=== PATIENT | female | born 1950 | race Caucasian/White ===

== ENCOUNTER 2020-04-21 19:57 | Inpatient (IN) | payer OTHER, MEDICAID, SELFPAY ==
[~2020-04-21] VITALS: Ht 160 cm; Wt 77.1 kg
[~2020-04-21 19:57] MED LIST: ATI.5 PO; BRE5 PO; DIT5 PO; DIVA250E1 PO; DIVA250T PO; MAA30 PO; MAGN400S60 PO; MEMA10TA PO; METO25TA PO; MULT-2410 PO; OLAN2.5T1 PO; SODI1TAB1 PO; SYN.075 PO; [UNRECOGNIZED DRUG - CODE] PO
--- NOTE | 2020-04-21 20:15 | NUR ---
PT VALERIO BLS. TAKEN TO BED 5
[2020-04-21 20:22] VITALS: BP 145/84
--- NOTE | 2020-04-21 20:30 | NUR ---
VISIBLE RED RASH NOTED UNDERNEATH BREAST AREA, ERMD MADE AWARE
--- NOTE | 2020-04-21 20:30 | NUR ---
69 YEAR OLD FEMALE BIBA FROM [facility] LOC. GCS 7 ([id number]). PT AOX0 SHE DOES NOT RESPOND VERBALLY WHEN TALKED TO, ONLY GRUNTS AND SLEEPS. PT PUPILS 2MM. PT REPORTEDLY LAST SEEN NORMAL AT 5PM. PT BREATHING EVEN AND UNLABORED, SKIN WARM AND DRY, SPO2 91%. PT PLACED ON MONITOR, ERMD MADE AWARE OF PT STATUS. PMH - HTN, DM2, DEMENTIA
--- NOTE | 2020-04-21 20:44 | NUR ---
PT O2 SATURATION DROPPED TO 91%, PLACED ON 2L NC. O2 SATURATION 99%, RR 14
[2020-04-21] MEDS ORDERED: NACL 0.9% 1,000 ML IV ONE (20:50)
[2020-04-21] MEDS ORDERED: cefTRIAXone 1,000 MG VIAL ONE (21:00)
--- NOTE | 2020-04-21 21:00 | NUR ---
UNABLE TO OBTAIN EKG AT THIS TIME AFTER ATTEMPTS B/C PT CONFUSED AND MOVES TOO MUCH. ERMD MADE AWARE
[2020-04-21 21:34] LABS: BASOPHILS # (AUTO) 0.1 K/uL (0.00-0.22); BASOPHILS % (AUTO) 0.7 % (0.0-2.0); EOSINOPHILS # (AUTO) 0.3 K/uL (0-0.4); EOSINOPHILS % (AUTO) 3.4 % (0.0-4.0); HEMOGLOBIN 10.8 g/dL (12.0-16.0); LYMPHOCYTES # (AUTO) 3.3 K/uL (2.5-16.5); MEAN CORPUSCULAR HEMOGLOBIN 29 pg (27-31); MEAN CORPUSCULAR HGB CONC 33 g/dL (33-37); MEAN CORPUSCULAR VOLUME 89.8 fL (80-94); MONOCYTES # (AUTO) 0.5 K/uL (0.8-1.0); MONOCYTES % (AUTO) 5.4 % (1.7-9.3); NEUTROPHILS # (AUTO) 5.5 K/uL (1.8-7.7); NEUTROPHILS % (AUTO) 56.5 % (42.2-75.2); PLATELET COUNT (AUTO) 240 K/uL (140-450); RED BLOOD CELL COUNT(AUTO) 3.68 MIL/uL (4.20-5.40); RED CELL DISTRIBUTION WIDTH 13.9 % (11.6-13.7); WHITE BLOOD COUNT (AUTO) 9.8 K/uL (4.8-10.8)
--- NOTE | 2020-04-21 21:46 | NUR ---
CALLED AGRICULTURAL LENDER NEED MORE STRAIGHT CATH
[2020-04-21 21:48] LABS: ALBUMIN 3.2 g/dL (3.4-5.0); ANION GAP 15.5 (8-16); CARBON DIOXIDE 25.3 mmol/L (21-32); CREATININE 1.6 mg/dL (0.6-1.3); POTASSIUM 4.8 mmol/L (3.5-5.1); TOTAL BILIRUBIN 0.2 mg/dL (0.0-1.0)
[2020-04-21 21:52] LABS: PROTHROMBIN TIME 9.9 secs (10.8-13.4)
[2020-04-21] MEDS ORDERED: DIVA250E1 PO (22:07)
[2020-04-21] MEDS ORDERED: BRE5 PO (22:07)
[2020-04-21] MEDS ORDERED: METO25TE2 PO (22:07)
[2020-04-21] MEDS ORDERED: SYN.075 PO (22:07)
[2020-04-21] MEDS ORDERED: MEMA10TA PO (22:07)
[2020-04-21] MEDS ORDERED: METF850T PO (22:07)
[2020-04-21] MEDS ORDERED: OLAN2.5T1 PO (22:07)
--- NOTE | 2020-04-21 22:10 | NUR ---
CALLED LASERIST DAJA THAT STILL NEED STRAIGHT CATH
--- NOTE | 2020-04-21 22:40 | NUR ---
STRAIGHT CATH PERFORMED TO OBTAIN URINE, SENT TO LAB. PROCEDURE WITHOUT COMPLICATION
[2020-04-21] MEDS ORDERED: HYDROcodone/APAP 5/325 MG 1 TAB TAB PO PRN (23:05)
[2020-04-21] MEDS ORDERED: ONDANSETRON 4 MG/2 ML VIAL IM/IVP PRN (23:05)
[2020-04-21] MEDS ORDERED: MORPHINE SULFATE 2 MG/ML SYR IVP PRN (23:05)
[2020-04-21] MEDS ORDERED: ACETAMINOPHEN 325 MG TAB PO PRN (23:05)
[2020-04-21] MEDS ORDERED: DOCUSATE SODIUM 100 MG GELCAP PO PRN (23:05)
--- NOTE | 2020-04-21 23:05 | NUR ---
PT RESTING WITH EYES CLOSED, BREATHING EVEN AND UNLABORED
--- NOTE | 2020-04-21 23:06 | NUR ---
EMT AT BEDSIDE TO PERFORM EKG
--- NOTE | 2020-04-21 23:30 | NUR ---
Brayden grijalva in [facility] - 04/22/20 at 0104 by MEDJJ ELIZID SWAB SENT TO LAB
[2020-04-21] MEDS ORDERED: MAGNESIUM HYDROXIDE 2400 MG/30 ML UDC PO PRN (23:40)
[2020-04-21] MEDS ORDERED: LORazepam 0.5 MG TAB PO PRN (23:40)
--- NOTE | 2020-04-21 23:41 | NUR ---
COVID SWAB SENT TO LAB
[2020-04-21 23:42] LABS: APPEARANCE,URINE CLOUDY (CLEAR); COLOR,URINE YELLOW (YELLOW); PH,URINE 7.5 (5.0-9.0)
[2020-04-21 23:43] LABS: BILIRUBIN,URINE NEGATIVE (NEGATIVE); BLOOD, URINE 4+ (NEGATIVE); LEUKOCYTE ESTERASE ,URINE 3+ (NEGATIVE); NITRITE, URINE POSITIVE (NEGATIVE); UGLUCOSE NEGATIVE (NEGATIVE)
[2020-04-21 23:44] LABS: RBC,URINE TOO NUMEROUS TO COUN /HPF (0-5); WBC,URINE TOO MANY TO COUNT /HPF (0-5)
--- NOTE | 2020-04-22 00:26 | NUR ---
PT ASLEEP ON BED. NO PAIN NOTED.
--- NOTE | 2020-04-22 00:39 | NUR ---
DR LAWS AT BEDSIDE OF PT. DR LAWS PT O2 SATURATION 88% ON 2L NC. RR 15
[2020-04-22] MEDS: NACL 0.9% 1,000 ML IV SCH ×3 (01:03→18:36)
--- NOTE | 2020-04-22 01:04 | NUR ---
PT RESTING WITH EYES CLOSED,BREATHING EVEN AND UNLABORED. NO DISTRESS NOTED. SPO2 87%, RR 14
--- NOTE | 2020-04-22 02:00 | NUR ---
PT RESTING WITH EYES CLOSED, BREATHING EVEN AND UNLABORED. NO DISTRESS NOTED AT THIS TIME. WILL CONTINUE TO MONITOR
--- NOTE | 2020-04-22 02:51 | NUR ---
PT TEMPERATURE 93.8 RECTAL, ERMD AND DR LAWS MADE AWARE. PT PLACED ON BEAR HUGGER, WILL CONTINUE TO MONITOR
--- NOTE | 2020-04-22 02:57 | NUR ---
DR LAWS AT BEDSIDE
--- NOTE | 2020-04-22 03:30 | NUR ---
PT RESTING WITH EYES CLOSED, BREATHING EVEN AND UNLABORED. NO DISTRESS NOTED AT THIS TIME. WILL CONTINUE TO MONITOR
--- NOTE | 2020-04-22 03:33 | NUR ---
RECTAL TEMPERATURE REDONE, TEMPERATURE 93.8. ERMTammy AND DR LAWS MADE AWARE. WILL PLACE MORE BLANKETS AND RECHECK SOON PER DR LAWS ORDERS
[2020-04-22 03:39] LABS: PHOSPHORUS 4.1 mg/dL (2.5-4.9); THYROID STIMULATING HORMONE 0.96 uIU/mL (0.34-3.74)
--- NOTE | 2020-04-22 04:20 | NUR ---
PT TEMPERATURE 94.4, ERMD AND DR LAWS MADE AWARE. PT SATURATION NOW CONSITENTLY IN 95%. PER DR LAWS TO CONTINUE WITH HEATING. WILL CONTINUE TO MONITOR
--- NOTE | 2020-04-22 04:30 | NUR ---
PT RESTING WITH EYES CLOSED, BREATHING EVEN AND UNLABORED. NO DISTRESS NOTED AT THIS TIME. WILL CONTINUE TO MONITOR
--- NOTE | 2020-04-22 05:07 | NUR ---
PT RECTAL TEMP 96.6, GEETHA AND DR LAWS MADE AWARE. BEAR HUGGER SET TO LOW SETTINGS.
--- NOTE | 2020-04-22 05:41 | NUR ---
PT RESTING WITH EYES CLOSED, BREATHING EVEN AND UNLABORED. NO DISTRESS NOTED AT THIS TIME. WILL CONTINUE TO MONITOR
--- NOTE | 2020-04-22 06:13 | NUR ---
TEMP 98.1. GEETHA AND DR LAWS MADE AWARE. TURNED OFF BEARHUGGER. WILL CONTINUE TO MONITOR. PT RESTING WITH EYES CLOSED, BREATHING EVEN AND UNLABORED
[2020-04-22 06:18] LABS: CHOL/HDL RATIO 4.7 (1-4.5)
[2020-04-22 07:30] VITALS: BP 131/92
[2020-04-22] MEDS: LEVOTHYROXINE 0.075 MG TAB PO SCH (07:30)
--- NOTE | 2020-04-22 07:30 | NUR ---
PATIENT ARRIVED FROM ER VIA GURNEY, TRANSFERRED TO [facility] BED SAFELY. PATIENT LYING DOWN IN BED SLEEPING, LETHARGIC, WITHDRAWS TO PAIN AT THIS TIME. AAOX1, SKIN COLOR APPROPRIATE TO ETHNICITY, WARM TO TOUCH. SKIN INTACT. RESPIRATIONS EVEN, UNLABORED ON O2 2L/MIN VIA NC. IV SITE INTACT, PATENT, AND INFUSING IVF PER MD ORDERS. HAS VAGINAL PROLAPSE NOTED, MD AWARE. REVIEWED PLAN OF CARE WITH PATIENT. REINFORCEMENT NEEDED. SAFETY MEASURES IN PLACE, CALL LIGHT WITHIN REACH. WILL CONTINUE TO MONITOR.
--- NOTE | 2020-04-22 07:30 | NUR ---
Patient will be admitted to care of Dr Vale. Admited to Tele. Will go to room 120A. Belongings list completed. Report to Jarad SANZ.
--- NOTE | 2020-04-22 07:30 | NUR ---
ENDORSED TO NEXT NURSE TO BE AWARE THAT PT HAD TEMP DROP TO 93.8 DURING NIGHT, PT TRANSFERED TO NEW BED WITH 3 BLANKETS
--- NOTE | 2020-04-22 07:39 | NUR ---
Brayden grijalva in ED - 04/22/20 at 0740 by MEDJJ ENDORSED TO NEXT NURSE TO BE AWARE THAT PT HAD TEMP DROP TO 93.8 DURING NIGHT, PT TRANSFERED TO NEW BED WITH 3 BLANKETS
[2020-04-22] MEDS: DIVALPROEX 250 MG TABEC PO SCH ×2 (09:00→21:14)
[2020-04-22] MEDS: TERBUTALINE 2.5 MG TAB PO SCH ×2 (09:00→21:13)
[2020-04-22] MEDS: MEMANTINE 10 MG TAB PO SCH ×2 (09:00→21:14)
[2020-04-22] MEDS: MULTIVITAMIN 1 TAB PO SCH (09:00)
[2020-04-22] MEDS: OXYBUTYNIN 5 MG TAB PO SCH (09:00)
[2020-04-22] MEDS: OLANZapine 2.5 MG TAB PO SCH ×2 (09:00→21:14)
[2020-04-22] MEDS: METOPROLOL 25 MG TAB PO SCH ×2 (09:00→21:14)
--- NOTE | 2020-04-22 10:15 | NUR ---
SCHEDULED IV/SUBQ MEDICATIONS DUE GIVEN. OTHER ORAL MEDICATIONS NOT GIVEN AT THIS TIME PATIENT IS LETHARGIC, DO NOT WANT PATIENT TO ASPIRATE. DR. CROCKETT MADE AWARE. WILL CONTINUE TO MONITOR.
--- NOTE | 2020-04-22 11:04 | NUR ---
ASSSISTED MIXING ROLL OPERATOR IN CLEANING AND REPOSITIONING PATIENT. WILL CONTINUE TO MONITOR.
--- NOTE | 2020-04-22 11:37 | NUR ---
MEDICAID BILLER NOTE: Patient's Orientation Unable To Assess Information Provided By KAIDEN CALLES - LAURENCE RIVERA. Comments SW WAS UNABLE TO MEET PATIENT AT BEDSIDE DUE TO MEDICAL CONDITION. Signal Timer, Realtionship and Phone Number MINISTERIO TREJO [phone] Healthcare Power of Training Director No Does Patient Have a POLST No Identifying Problems No Social Work Triggers Is A Social Work Consult Needed No Mandate Report Filed No Explanation Of Identifying Problems PATIENT IS A 69-YEAR-OLD FEMALE ADMITTED FOR SEVERE SEPSIS. PATIENT HAS PMHX OF HTN, HYPOTHYROIDISM, DEMENTIA, AND PSYCHOSIS. Admitted From Retirement Facility Retirement Facility [facility] - [phone] Pre-Admission Level Of Functioning Status Total Care Prior Resources/Services Used In Last 12 Months No Prior Resources Used Prior DME No Prior DME Used Patient Had Caregiver No Home Support No Caregiver Issues Financial Issues No Known Financial Issue Factors/Needs SNF/NH Placement Explanation And Or Other Factors Affecting/Possible DC Needs PATIENT IS SENIOR CARE AND ON A BED HOLD. Discharge Plan Comments TENTATIVE DISCHARGE PLAN IS FOR PATIENT TO RETURN TO [facility]. DC Plan Status Initiated
[2020-04-22 12:00] VITALS: BP 129/64
--- NOTE | 2020-04-22 13:30 | NUR ---
PATIENT LYING DOWN IN BED, CONFUSED. IV SITE PULLED OUT. WILL INSERT NEW ONE LATER. WILL CONTINUE TO MONITOR.
--- NOTE | 2020-04-22 14:00 | NUR ---
PATIENT HAS BEEN SCREENED AND CATEGORIZED MODERATE NUTRITION RISK. PATIENT WILL BE SEEN WITHIN 3-5 DAYS OF ADMISSION. 04/24/20 04/26/[address]
--- NOTE | 2020-04-22 15:01 | NUR ---
DC PLANNIN YRS OLD FEMALE PATIENT WAS ADMITTED FROM [facility] WITH DX OF SEVER SEPSIS. PT HAS A HX OF PSYCHOSIS , DEMENTIA, SEIZURE, AND HTN. CXR SHOWED NORMAL CHEST. RENAL ULTRASOUND SHOWED MODERATE RIGHT HYDRONEPHROSIS. COVID-TEST, BLOOD AND URINE CULTURE PENDING. STARTED ON IVF, IV ABX ROCEPHIN AND CONTINUE HOME MEDICATIONS. CONSULTED WITH ID, PULMO AND BOND UNDERWRITER. DC PLAN TO GO BACK TO [facility]. CM TO FOLLOW. Addendum: 04/24/20 at 1417 by Katy Tello DC PLANNINST COVID TEST NEGATIVE ,2ND TEST PENDING. CONTINUE IV ABX ROCEPHIN UNTIL URINE CULTURE AND SENSITIVITY RETURNED. DC PLAN TO GO BACK TO [facility] WHEN STABLE CM TO FOLLOW Addendum: 04/24/20 at 1646 by Sahara Poole FAXED PATIENTS PACKET TO [facility] [phone], FAX # [phone]. WILL FOLLOW UP. Addendum: 04/25/20 at 1001 by Sahara Poole CM PATIENT WILL BE DISCHARGED BACK TO [facility] TODAY. GOING TO ROOM [facility] ACCEPTING DOCTOR DR. GAMBOA. WAITING ON DISCHARGE ORDER TO SET UP TRANSPORTATION. Addendum: 04/25/20 at 1548 by Sahara Poole CM NUMBER TO CALL TO SET UP TRANSPORTATION [phone]
--- NOTE | 2020-04-22 15:20 | NUR ---
PATIENT LYING DOWN IN BED SLEEPING, AROUSABLE BY VOICE. NO DISTRESS NOTED. CONDITION UNCHANGED. WILL CONTINUE TO MONITOR.
[2020-04-22 16:00] VITALS: BP 134/90
--- NOTE | 2020-04-22 17:37 | NUR ---
ASSISTED ECOSYSTEM ECOLOGY PROFESSOR IN CLEANING AND REPOSITIONING PATIENT. WILL CONTINUE TO MONITOR.
--- NOTE | 2020-04-22 18:37 | NUR ---
PATIENT SITTING IN BED WITH DINNER TRAY IN FRONT. NO DISTRESS NOTED. WILL CONTINUE TO MONITOR .
[2020-04-22] MEDS ORDERED: DEXTROSE 50% 50 ML SYR IVP PRN (19:15)
--- NOTE | 2020-04-22 19:17 | NUR ---
GAVE REPORT TO IT ASSOCIATE NURSE FOR CONTINUITY OF CARE. PATIENT IN STABLE CONDITION.
--- NOTE | 2020-04-22 19:18 | NUR ---
RECEIVED PATIENT IN STABLE CONDITION FROM AM SHIFT NURSE FOR CONTINUITY OF CARE. TELE PATIENT. RESPIRATIONS EVEN, UNLABORED. SKIN WARM, DRY. IV SITE TO RIGHT FOREARM PATENT/INTACT, INFUSING FLUIDS WELL. NO C/O PAIN. NO S/S ACUTE DISTRESS. CALL LIGHT WITHIN REACH. SAFETY PRECAUTIONS IN PLACE. ISOLATION PRECAUTIONS OBSERVED BY ALL STAFF.
[2020-04-22 20:00] VITALS: BP 140/57
--- NOTE | 2020-04-22 21:00 | NUR ---
INCONTINENT CARE RENDERED WITH ANIMAL IMPERSONATOR AT BEDSIDE. DUE MEDS GIVEN. CALL LIGHT WITHIN REACH. NO S/S ACUTE DISTRESS. NO C/O PAIN. SAFETY PRECAUTIONS IN PLACE.
[2020-04-22] MEDS: INSULIN LISPRO SLIDING SCALE 100 UNITS/ML VIAL SUBQ PRN (21:12)
[2020-04-22] MEDS: BLOOD GLUCOSE MONITORING 1 DEV DEV FS SCH (21:13)
--- NOTE | 2020-04-22 23:00 | NUR ---
PATIENT ASLEEP. NO S/S ACUTE DISTRESS. CALL LIGHT WITHIN REACH. SAFETY PRECAUTIONS IN PLACE.
[2020-04-23] VITALS: BP 156/75
--- NOTE | 2020-04-23 02:00 | NUR ---
MADE ROUNDS. PATIENT ASLEEP. NO S/S ACUTE DISTRESS. CALL LIGHT WITHIN REACH. SAFETY PRECAUTIONS IN PLACE.
[2020-04-23 04:00] VITALS: BP 132/46
[2020-04-23] MEDS: NACL 0.9% 1,000 ML IV SCH (05:47)
--- NOTE | 2020-04-23 07:20 | NUR ---
RECEIVED PATIENT FROM NIGHT NURSE. PATIENT IS AWAKE AND ALERT. RESPONSIVE TO NAME AND NURSING STAFF. RESP EVEN AND UNLABORED ON ROOM AIR. NO NOTED DISTRESS. PATIENT DENIES OF PAIN AT THIS TIME. RFA 20 INTACT. PLAN OF CARE DISCUSSED. PATIENT VERBALIZED UNDERSTANDING. CALL LIGHT WITHIN REACH. BED IN LOW POSITION. SAFETY PRECAUTION CONTINUES. WILL CONTINUE WITH CARE.
[2020-04-23 07:38] LABS: BASOPHILS # (AUTO) 0.1 K/uL (0.00-0.22); BASOPHILS % (AUTO) 1.1 % (0.0-2.0); EOSINOPHILS # (AUTO) 0.3 K/uL (0-0.4); EOSINOPHILS % (AUTO) 2.6 % (0.0-4.0); HEMATOCRIT 33.1 % (36-48); HEMOGLOBIN 10.7 g/dL (12.0-16.0); LYMPHOCYTES # (AUTO) 2.9 K/uL (2.5-16.5); LYMPHOCYTES % (AUTO) 27.3 % (20.5-51.1); MEAN CORPUSCULAR HEMOGLOBIN 29 pg (27-31); MEAN CORPUSCULAR HGB CONC 32 g/dL (33-37); MEAN CORPUSCULAR VOLUME 89.8 fL (80-94); MONOCYTES # (AUTO) 0.4 K/uL (0.8-1.0); MONOCYTES % (AUTO) 4.1 % (1.7-9.3); NEUTROPHILS # (AUTO) 6.8 K/uL (1.8-7.7); NEUTROPHILS % (AUTO) 64.9 % (42.2-75.2); PLATELET COUNT (AUTO) 186 K/uL (140-450); RED BLOOD CELL COUNT(AUTO) 3.68 MIL/uL (4.20-5.40); RED CELL DISTRIBUTION WIDTH 13.7 % (11.6-13.7); WHITE BLOOD COUNT (AUTO) 10.5 K/uL (4.8-10.8)
[2020-04-23 07:46] LABS: ANION GAP 14.1 (8-16); CARBON DIOXIDE 23.2 mmol/L (21-32); CREATININE 1.4 mg/dL (0.6-1.3); POTASSIUM 4.3 mmol/L (3.5-5.1)
[2020-04-23 08:00] VITALS: BP 143/62
[2020-04-23] MEDS: OLANZapine 2.5 MG TAB PO SCH ×2 (09:19→22:40)
[2020-04-23] MEDS: BLOOD GLUCOSE MONITORING 1 DEV DEV FS SCH ×4 (09:20→21:00)
[2020-04-23] MEDS: METOPROLOL 25 MG TAB PO SCH ×2 (09:22→22:47)
[2020-04-23] MEDS: MULTIVITAMIN 1 TAB PO SCH (09:25)
[2020-04-23] MEDS: OXYBUTYNIN 5 MG TAB PO SCH (09:25)
[2020-04-23] MEDS: DIVALPROEX 250 MG TABEC PO SCH ×2 (09:25→22:40)
[2020-04-23] MEDS: MEMANTINE 10 MG TAB PO SCH ×2 (09:25→22:40)
[2020-04-23] MEDS: TERBUTALINE 2.5 MG TAB PO SCH ×2 (09:26→22:46)
[2020-04-23] MEDS: LEVOTHYROXINE 0.075 MG TAB PO SCH (09:30)
[2020-04-23 09:35] LABS: MAGNESIUM 2.1 mg/dL (1.8-2.4); PHOSPHORUS 4.5 mg/dL (2.5-4.9)
[2020-04-23] MEDS: DEXT 5% /NACL 0.9% 1,000 ML IV SCH ×2 (09:43→23:52)
--- NOTE | 2020-04-23 09:45 | NUR ---
MORNING ROUTINE MEDICATIONS GIVEN. PATIENT TOLERATED WELL. SKIN IS INTACT. PATIENT SPEAKS ANGUILLAN ONLY. ANGRY OUTBURSTS BUT ABLE TO BE REDIRECTED. NO NOTED DISTRESS AT THIS TIME. D5NS AT 60ML. WILL CONTINUE TO MONITOR.
--- NOTE | 2020-04-23 11:45 | NUR ---
BLOOD GLUCOSE AT 54. PATIENT IS ASYMPTOMATIC, ALERT AND AWAKE. DEXTROSE 50% GIVEN IVP PRN ORDER. WILL REASSESS. CALL LIGHT WITHIN REACH.
[2020-04-23 12:00] VITALS: BP 120/69
--- NOTE | 2020-04-23 12:30 | NUR ---
BLOOD SUGAR REASSESS AT 130. PATIENT IN BED EATING LUNCH. NO NOTED DISTRESS. CONTINUES WITH VERBAL OUTBURSTS. ABLE TO REDIRECT AND PATIENT COMPLIES WITH STAFF. CALL LIGHT WITHIN REACH. WILL CONTINUE TO MONITOR.
[2020-04-23 16:00] VITALS: BP 150/84
--- NOTE | 2020-04-23 16:30 | NUR ---
BLOOD SUGAR 67. ORANGE JUICE GIVEN. RECHECKED BLOOD SUGAR 102. PATIENT ALERT AND AWAKE. RESPONSIVE TO STAFF. ABLE TO REDIRECT. CALL LIGHT WITHIN REACH. WILL CONTINUE TO MONITOR.
--- NOTE | 2020-04-23 19:25 | NUR ---
RECEIVED REPORT FROM AM SHIFT NURSE FOR CONTINUITY OF CARE. PATIENT IS ON ROOM AIR AND IS ASLEEP AT THIS TIME. RESPIRATIONS ARE EVEN AND UNLABORED, NO S/S OF RESP DISTRESS NOTED. IV TO RIGHT FOREARM INTACT AND PATENT WITH FLUIDS INFUSING. PATIENT IS BEDBOUND AND INCONTINENT. WILL CONTINUE TO MONITOR PATIENT. BED IN LOW POSITION AND CALL LIGHT WITHIN REACH
--- NOTE | 2020-04-23 19:25 | NUR ---
ENDORSED PATIENT TO NIGHT NURSE. PATIENT IN STABLE CONDITION.
[2020-04-23 20:00] VITALS: BP 147/83
--- NOTE | 2020-04-23 20:45 | NUR ---
PATIENT RESTING IN BED, NO S/S OF RESP DISTRESS OR DISCOMFORT. REPOSITIONED AND CLEAN AND DRY. CALL LIGHT WITHIN REACH AND BED IN LOW POSITION. WILL CONTINUE TO MONITOR
--- NOTE | 2020-04-23 22:45 | NUR ---
BLOOD SUGAR 75, NO COVERAGE NEEDED, PATIENT TOLERATED MEDS BY MOUTH WITHOUT COMPLICATIONS. WILL CONTINUE TO MONITOR
[2020-04-24] VITALS: BP 146/72
--- NOTE | 2020-04-24 00:50 | NUR ---
ROUNDS DONE, PATIENT AWAKE WATCHING TV, RESP EVEN AND UNLABORED. WILL CONTINUE TO MONITOR. NO S/S OF DISTRESS NOTED
--- NOTE | 2020-04-24 02:29 | NUR ---
PATIENT SLEEPING, O2 SAT 94% ON RA. RESP EVEN AND UNLABORED. WILL CONTINUE TO MONITOR
[2020-04-24 04:00] VITALS: BP 145/94
--- NOTE | 2020-04-24 04:30 | NUR ---
VITAL SIGN TAKEN, PATIENT AWAKE AND NO S/S OF DISTRESS. DENIES PAIN. WILL CONTINUE TO MONITOR.
[2020-04-24] MEDS: LEVOTHYROXINE 0.075 MG TAB PO SCH (06:34)
[2020-04-24] MEDS: BLOOD GLUCOSE MONITORING 1 DEV DEV FS SCH ×4 (06:35→20:30)
--- NOTE | 2020-04-24 06:39 | NUR ---
BLOOD GLUCOSE 76 NO COVERAGE NEEDED. PATIENT AWAKE. NO S/S OF PAIN OR DISCOMFORT, DENIES PAIN. WILL CONTINUE TO MONITOR
--- NOTE | 2020-04-24 07:10 | NUR ---
RECEIVED PT FROM AUDIOLOGY DIRECTOR NURSE. PT IS CURRENTLY SLEEPING IN BED WITH NO SIGNS OF DISTRESS AT THIS TIME. RESPIRATIONS ARE EVEN AND UNLABORED ON ROOM AIR WITH NO SIGNS OF DISTRESS. SKIN IS INTACT WITH IV ASYMPTOMATIC PATENT AND INFUSING PER ORDERS. BED IS IN LOW, SEMI-FOWLERS POSITION, CALL LIGHT WITHIN REACH, SAFETY MEASURES IN PLACE AND WILL CONTINUE TO MONITOR.
--- NOTE | 2020-04-24 07:40 | NUR ---
REPORT GIVEN TO AM SHIFT NURSE FOR CONTINUITY OF CARE, PATIENT IN STABLE CONDITION AT THIS TIME. CALL LIGHT WITHIN REACH NAD BED IN LOW POSITION
[2020-04-24 08:00] VITALS: BP 98/72
[2020-04-24] MEDS: METOPROLOL 25 MG TAB PO SCH ×2 (09:39→20:35)
[2020-04-24] MEDS: OXYBUTYNIN 5 MG TAB PO SCH (09:39)
[2020-04-24] MEDS: DIVALPROEX 250 MG TABEC PO SCH ×2 (09:39→20:34)
[2020-04-24] MEDS: MULTIVITAMIN 1 TAB PO SCH (09:39)
[2020-04-24] MEDS: MEMANTINE 10 MG TAB PO SCH ×2 (09:40→20:35)
[2020-04-24] MEDS: OLANZapine 2.5 MG TAB PO SCH ×2 (09:40→20:35)
[2020-04-24] MEDS: TERBUTALINE 2.5 MG TAB PO SCH ×2 (09:40→20:33)
[2020-04-24] MEDS ORDERED: CRUSHER, PILL MC ONE ×2 (09:41→20:22)
--- NOTE | 2020-04-24 09:48 | NUR ---
ADMINISTERED MEDICATIONS PER ORDER AND TOLERATED WELL. PT IS CURRENTLY SITTING IN BED WATCHING TV WITH NO SIGNS OF DISTRESS AT THIS TIME. SAFETY MEASURES IN PLACE AND WILL CONTINUE TO MONITOR.
--- NOTE | 2020-04-24 10:20 | NUR ---
PT IS CURRENTLY BEING CHANGED BY PRE PAROLE COUNSELING AIDE AND TOLERATING WELL. PT IS IN NO SIGNS OF DISTRESS AT THIS TIME. SAFETY MEASURES IN PLACE AND WILL CONTINUE TO MONITOR.
--- NOTE | 2020-04-24 12:46 | NUR ---
PATIENTS BLOOD GLUCOSE IS 77 THEREFORE NO INSULIN COVERAGE IS NEEDED A THIS TIME. PATIENT IS CURRENTLY LAYING IN BED WITH BLANKET OVER HER HEAD AND NO SIGNS OF DISTRESS. SAFETY MEASURES IN PLACE AND WILL CONTINUE TO MONITOR.
--- NOTE | 2020-04-24 14:23 | NUR ---
PT IS CURRENTLY SLEEPING IN BED WITH NO SIGNS OF DISTRESS AT THIS TIME. SAFETY MEASURES IN PLACE AND WILL CONTINUE TO MONITOR.
--- NOTE | 2020-04-24 15:59 | NUR ---
PT IS CURRENTLY SITTING IN BED WATCHING TV WITH NO SIGNS OF DISTRESS. SAFETY MEASURES IN PLACE AND WILL CONTINUE OT MONITOR
[2020-04-24 16:00] VITALS: BP 125/65
[2020-04-24] MEDS: DEXT 5% /NACL 0.9% 1,000 ML IV SCH (17:03)
--- NOTE | 2020-04-24 17:04 | NUR ---
ADMINISTERED MEDICATIONS PER ORDER AND TOLERATED WELL. PT BLOOD GLUCOSE IS CURRENTLY 64. WILL GIVE ORANGE JUICE AND RECHECK BLOOD SUGAR IN [address]ES. SAFETY MEASURES IN PLACE AND WILL CONTINUE TO MONITOR.
--- NOTE | 2020-04-24 18:14 | NUR ---
RECHECKED PATIENTS BLOOD GLUCOSE AND IS NOW 120. NO INSULIN COVERAGE IS NEEDED AT THIS TIME. SAFETY MEASURES IN PLACE AND WILL CONTINUE TO MONITOR.
--- NOTE | 2020-04-24 19:00 | NUR ---
RECEIVED REPORT FROM DAY SHIFT NURSE FOR CONTINUITY OF CARE. PT IS AWAKE AND ALERT. A&O X 2 AND NO SIGNS OF DISTRESS NOTED. PT IS ON RA AND BREATHING IS EVEN AND UNLABORED. PT HAS A RIGHT FOREARM IV 20 GAUGE RUNNING D5NS AT 50 ML PER HOUR PER DOCTORS ORDER. SKIN IS WARM, DRY, AND INTACT. FIRST COVID 19 TEST WAS NEGATIVE AND WAITING FOR THE SECOND TEST WHICH IS PENDING TO RETURN NEGATIVE FOR TRANSFER BACK TO SNF. BED IS IN THE LOWEST POSITION AND CALL LIGHT IS WITHIN REACH. PT IS STABLE AT THIS TIME. PLAN OF CARE WAS DISCUSSED.
--- NOTE | 2020-04-24 19:17 | NUR ---
GAVE REPORT TO DOCUMENTATION SPECIALIST NURSE FOR CONTINUITY OF CARE. PT IS CURRENTLY SITTING IN BED WITH NO SIGNS OF DISTRESS.
--- NOTE | 2020-04-24 20:00 | NUR ---
SPOKE WITH PATIENTS ELDEST SON ON THE PHONE. INFORMED HIM ABOUT THE CONDITION OF THE PATIENT AND UPDATED HIM ON THE PLAN OF CARE. INFORMED HIM ABOUT THE CONSULT WITH DR. FOSTER THAT IS PENDING.
[2020-04-24] MEDS: MEROPENEM 1,000 MG in NACL 0.9% 100 ML IV SCH (20:31)
[2020-04-24] MEDS ORDERED: MEROPENEM 1,000 MG in NACL 0.9% 100 ML IV SCH (21:00)
--- NOTE | 2020-04-24 21:00 | NUR ---
PT IS AWAKE AND ALERT. BREATHING IS EVEN AND UNLABORED. NO DISTRESS NOTED. MEDICATIONS WERE GIVEN AND MEDICATION EDUCATION WAS PROVIDED.
[2020-04-24] MEDS: INSULIN LISPRO SLIDING SCALE 100 UNITS/ML VIAL SUBQ PRN (21:41)
--- NOTE | 2020-04-24 21:44 | NUR ---
PUILL CUTTER USED
--- NOTE | 2020-04-24 23:35 | NUR ---
PT IS AWAKE AND A&O X2. PT IS ON RA AND BREATHING IS UNLABORED. PT IS STABLE AT THIS TIME. WILL CONTINUE TO MONITOR.
[2020-04-25] VITALS: BP 121/41
--- NOTE | 2020-04-25 01:30 | NUR ---
PT IS SLEEPING AND CALM. NO APPARENT SIGNS OF DISTRESS. NO SIGNS OF PAIN. WILL CONTINUE TO MONITOR.
--- NOTE | 2020-04-25 05:50 | NUR ---
PT'S IV IN THE RIGHT FOREARM WAS INFILTRATED. IV WAS REMOVED AND NEW IV WAS INSERTED IN THE LEFT WRIST 22 GAUGE. IV IS PATENT AND INFUSING FLUIDS ORDERED.
--- NOTE | 2020-04-25 05:50 | NUR ---
PT'S BLOOD SUGAR LEVEL WAS 88. GAVE PT TWO ORANGE JUICE'S. WILL CONTINUE TO MONITOR.
[2020-04-25] MEDS: BLOOD GLUCOSE MONITORING 1 DEV DEV FS SCH ×4 (05:53→20:52)
--- NOTE | 2020-04-25 06:58 | NUR ---
PT AWAKE, A O X 3 , SAMMARINESE SPEAKING. PT IN STABLE CONDITION AT THIS TIME. WILL ENDORSE TO NEXT SHIFT FOR CONTINUITY OF CARE.
[2020-04-25] MEDS: LEVOTHYROXINE 0.075 MG TAB PO SCH (07:30)
--- NOTE | 2020-04-25 07:32 | NUR ---
RECEIVED REPORT FROM POLE FRAMER RN FOR CONTINUITY OF CAR. PT IS AAOX1-2, UNCOOPERATIVE AND UNABLE TO MAKE NEEDS KNOWN. PT IS ON RA. PT HAS LEFT WRIST 22G INFUSING D5NS @ 60ML/HR. PT BEDBOUND BUT BED ALARM ON FOR SAFETY MEASURES. PT UNABLE TO UNDERSTAND UPDATE ON POC. WILL ROUND FREQUENTLY ON PT THROUGHOUT THE SHIFT.
[2020-04-25 07:35] LABS: BASOPHILS # (AUTO) 0.1 K/uL (0.00-0.22); BASOPHILS % (AUTO) 0.8 % (0.0-2.0); EOSINOPHILS # (AUTO) 0.6 K/uL (0-0.4); EOSINOPHILS % (AUTO) 7.5 % (0.0-4.0); HEMATOCRIT 36.6 % (36-48); HEMOGLOBIN 11.8 g/dL (12.0-16.0); LYMPHOCYTES # (AUTO) 1.7 K/uL (2.5-16.5); LYMPHOCYTES % (AUTO) 22.4 % (20.5-51.1); MEAN CORPUSCULAR HEMOGLOBIN 29 pg (27-31); MEAN CORPUSCULAR HGB CONC 32 g/dL (33-37); MONOCYTES # (AUTO) 0.6 K/uL (0.8-1.0); MONOCYTES % (AUTO) 7.9 % (1.7-9.3); NEUTROPHILS # (AUTO) 4.7 K/uL (1.8-7.7); NEUTROPHILS % (AUTO) 61.4 % (42.2-75.2); PLATELET COUNT (AUTO) 278 K/uL (140-450); RED BLOOD CELL COUNT(AUTO) 4.07 MIL/uL (4.20-5.40); RED CELL DISTRIBUTION WIDTH 13.9 % (11.6-13.7); WHITE BLOOD COUNT (AUTO) 7.7 K/uL (4.8-10.8)
[2020-04-25 07:48] LABS: ANION GAP 15.6 (8-16); CARBON DIOXIDE 23.8 mmol/L (21-32); CREATININE 1.6 mg/dL (0.6-1.3); POTASSIUM 4.4 mmol/L (3.5-5.1)
[2020-04-25 07:55] LABS: MAGNESIUM 1.9 mg/dL (1.8-2.4)
[2020-04-25 08:00] VITALS: BP 148/87
[2020-04-25] MEDS: DEXT 5% /NACL 0.9% 1,000 ML IV SCH (08:50)
[2020-04-25] MEDS: OXYBUTYNIN 5 MG TAB PO SCH (09:00)
[2020-04-25] MEDS: MEMANTINE 10 MG TAB PO SCH ×2 (09:00→21:49)
[2020-04-25] MEDS: METOPROLOL 25 MG TAB PO SCH ×2 (09:00→21:48)
[2020-04-25] MEDS: TERBUTALINE 2.5 MG TAB PO SCH ×2 (09:00→21:46)
[2020-04-25] MEDS: MEROPENEM 1,000 MG in NACL 0.9% 100 ML IV SCH ×2 (09:00→21:46)
[2020-04-25] MEDS: DIVALPROEX 250 MG TABEC PO SCH ×2 (09:00→21:47)
[2020-04-25] MEDS: MULTIVITAMIN 1 TAB PO SCH (09:00)
[2020-04-25] MEDS: OLANZapine 2.5 MG TAB PO SCH ×2 (09:00→21:50)
--- NOTE | 2020-04-25 09:47 | NUR ---
ADMINISTERED MORNING MEDS TO PT. PT TOLERATED WELL. ALL NEEDS MET. WILL CONTINUE TO ROUND FREQUENTLY ON PT.
--- NOTE | 2020-04-25 11:54 | NUR ---
PT BS 70. GAVE JUICE AND CRACKERS AND PT WILL BE HAVING LUNCH RIGHT NOW. WILL REASSESS PT BS.
--- NOTE | 2020-04-25 13:35 | NUR ---
04/25/20 RD INITIAL ASSESSMENT COMPLETED PLEASE REFER TO NUTRITION ASSESSMENT UNDER CARE ACTIVITY FOR ESTIMATED NUTRITIONAL NEEDS. 1. CONTINUE CARDIAC PUREE DIET TOLERATED 2. RECOMMEND ENSURE BID 3. ENCOURAGE INCREASING PO INTAKE 4. RD TO FOLLOW-UP 3-5 DAYS, MODERATE RISK AGUSTO SAM, LIT
--- NOTE | 2020-04-25 14:05 | NUR ---
RECEIVED REPORT FROM NURSE BETH FOR CONTINUITY OF CARE, PT IS STABLE, BREAK AND LOAD OPERATOR WITH PT, PT RESTING IN BED, PT HAS LEFT WRIST 22G INFUSING D5NS AT 60ML/H, INTRODUCE SELF, PT ACKNOWLEDGE NURSE AND STATED HER NAME, CALL LIGHT WITHIN REACH, BED IN LOW POSITION, SAFETY MEASURES IN PLACE.
--- NOTE | 2020-04-25 14:08 | NUR ---
ENDORSED PT TO LOUISE FOR CONTINUITY OF CARE. PT IN STABLE CONDITION AT THIS TIME.
--- NOTE | 2020-04-25 15:30 | NUR ---
PT ASLEEP IN BED, NO SIGNS OF DISTRESS NOTED, CALL LIGHT WITHIN REACH.
[2020-04-25] MEDS ORDERED: MERO1PDS7 IV (16:27)
[2020-04-25] MEDS: INSULIN LISPRO SLIDING SCALE 100 UNITS/ML VIAL SUBQ PRN (17:46)
--- NOTE | 2020-04-25 17:47 | NUR ---
ADMINISTERED 2 UNITS OF HUMALOG FOR BLOOD GLUCOSE OF 166, MEDICATION EDUCATION GIVEN, PT CONFUSED, PT TOLERATED WELL, PT IS STABLE, CALL LIGHT WITHIN REACH.
[2020-04-25 18:00] VITALS: BP 147/61
--- NOTE | 2020-04-25 19:00 | NUR ---
RECEIVED BEDSIDE REPORT FROM DAY SHIFT NURSE. PT IS AWAKE AND ALERT. SHE IS A&O X 2. PT IS ON RA AND BREATHING IS EVEN AND UNLABORED. PT IS INCONTINENT AND DISTRICT HOME ECONOMICS AGENT STAFF IS CURRENTLY CHANGING HER LINENS. PT HAS A LEFT WRIST 22 GAUGE D5 NS AT 60 ML PER HOUR PER DOCTOR ORDER. IV IS PATENT AND INTACT. BED IS IN LOWEST POSITION AND CALL LIGHT IS WITHIN REACH. PLAN OF CARE WAS DISCUSSED.
--- NOTE | 2020-04-25 19:25 | NUR ---
ENDORSE PT TO NIGHT NURSE FOR CONTINUITY OF CARE, PT IS STABLE
[2020-04-25] MEDS ORDERED: KETOCONAZOLE 2% 15 GM TUBE TP SCH (21:00)
[2020-04-25] MEDS ORDERED: CRUSHER, PILL MC ONE (21:40)
--- NOTE | 2020-04-25 21:45 | NUR ---
TALKED TO LEGISLATOR VINCENZO FOR TRANSPOATATION SERVICE BACK TO [facility], / [place]. [id number]. SHE TOLD ME THAT THE TRANSPO SERVICE WILL CALL ME BACK FOR THE ESTIMATED TIME OF CLAIM APPROVER.
--- NOTE | 2020-04-25 21:45 | NUR ---
PT IS AWAKE AND ALERT. MEDICATIONS WERE GIVEN AND EDUCATION WAS PROVIDED. PT TOLERATED MEDICATIONS WELL AND WAS ALSO GIVEN APPLESAUCE WHICH WAS REQUESTED. PT'S SOILED LINENS WERE CHANGED AND PT IS RESTING. NO APPARENT SIGNS OF DISTRESS.
--- NOTE | 2020-04-25 21:57 | NUR ---
TALKED TO FAMILY WALESKA HANSEN, SON AND TOLD HIM THAT PT WILL BE GOING BACK TO SNF, [facility]
[2020-04-25 22:06] VITALS: BP 145/94
--- NOTE | 2020-04-25 22:20 | NUR ---
TALKED TO PHAM OF [facility] [phone] AND SHE SAID THE ESTIMATED TIME OF AIRCRAFT CABIN CLEANER IS 5AM BUT WILL CALL US IF SHE COULD CAN GET AN EARLIER TIME FOR US.
--- NOTE | 2020-04-25 22:23 | NUR ---
INFORMED DR. GAMBOA THAT THE EARLIEST TIME THAT TRANSPO SERVICE DUE IS AT 5AM, AND THAT THEY WILL CALL US BACK IF THEY FIND AN EARLY TIME.
[2020-04-26] VITALS: BP 169/77
--- NOTE | 2020-04-26 | NUR ---
PT IS AWAKE AND LAYING IN BED WATCHING TV. NO SIGNS OF DISTRESS NOTED. BREATHING IS REGULAR AND UNLABORED. WILL CONTINUE TO MONITOR.
--- NOTE | 2020-04-26 00:40 | NUR ---
CHECKED THE PT'S BP AND THE READING WAS 170/74. RECHECKED TWO TIMES AND THAT WAS THE LOWEST READING. NOTIFIED DR. GAMBOA ABOUT THE BP AND SHE SAID SHE WOULD PUT IN A PRN ORDER FOR BP. WILL ADMINISTER WHEN ORDER IS VERIFIED.
[2020-04-26] MEDS ORDERED: hydrALAZINE 20 MG/ML VIAL IVP PRN (00:55)
[2020-04-26] MEDS: DEXT 5% /NACL 0.9% 1,000 ML IV SCH (01:44)
--- NOTE | 2020-04-26 01:44 | NUR ---
D5 NS BAR CODE NOT SCANNING, VERIFIED W/ GARCIA RN AND CHARGE NURSE
--- NOTE | 2020-04-26 02:45 | NUR ---
APRESOLINE 10 MG PRN WAS ADMINISTERED FOR BP READING OF 170/72 ORDERED. WILL REASSESS BP WITHIN AN HOUR TO ENSURE MEDICATION WAS EFFECTIVE.
[2020-04-26 03:45] VITALS: BP 117/75
--- NOTE | 2020-04-26 05:02 | NUR ---
PT IS IN STABLE CONDITION. BREATHING IS REGULAR AND UNLABORED. LINENS WERE CHANGED AND PT WAS REPOSITIONED. PT IS NOW RESTING WATCHING TV. WILL CONTINUE TO MONITOR PT.
--- NOTE | 2020-04-26 05:15 | NUR ---
DISCHARGED PT TO [facility], PT Laura, Laura O X 2, ARABIC SPEAKING, PT WITH MAX ASSISTANCE TO [facility] DUE TO HEALTH CONDITION. [facility] WITH 2 EMS ASSISTING PATIENT.
--- NOTE | 2020-04-26 05:17 | NUR ---
CALLED [facility] AND TALKED TO UMU LATIF THAT I ALREADY ENDORSED TO THE PATIENT AND REPORTED TO [facility] BECKFORD EARLY THIS EVENING.
[2020-04-26] MEDS ORDERED: Z-GUARD PASTE TP SCH (09:00)
== END 2020-04-26 05:15 | DRG 871 ==
LOC: MED 19:57 → MTU 23:08 → EEVIPCON 23:08 → MTU 23:09
PROVIDERS: ADMIT General Practice; ATTEND General Practice
DX: A41.9 Sepsis, unspecified organism (principal); G93.41 Metabolic encephalopathy; N17.0 Acute kidney failure with tubular necrosis; N39.0 Urinary tract infection, site not specified; E44.0 Moderate protein-calorie malnutrition; R65.20 Severe sepsis without septic shock; Z68.30 Body mass index [BMI] 30.0-30.9, adult; B96.20 Unspecified Escherichia coli [E. coli] as the cause of diseases classified elsewhere; E03.9 Hypothyroidism, unspecified; E66.9 Obesity, unspecified; F03.90 Unspecified dementia, unspecified severity, without behavioral disturbance, psychotic disturbance, mood disturbance, and anxiety; G40.909 Epilepsy, unspecified, not intractable, without status epilepticus; I10 Essential (primary) hypertension; J44.9 Chronic obstructive pulmonary disease, unspecified; D64.9 Anemia, unspecified; N32.81 Overactive bladder; R31.9 Hematuria, unspecified; N81.4 Uterovaginal prolapse, unspecified; Z20.828 Contact with and (suspected) exposure to other viral communicable diseases
CPT/HCPCS: 36415; 36600; 71045; 76770; 80048; 80053; 81001; 82550; 82553; 82803; 82948; 83036; 83605; 83615; 83735; 83874; 83880; 84100; 84443; 84484; 85025; 85379; 85610; 85651; 85730; 86140; 87040; 87081; 87086; 87186; 97112; 97116; 97161-GP; 99285; J0360; J0696; J1644; J2185; J7030; J7042; J7060; Q0092; U0003-CS

== ENCOUNTER 2023-08-05 00:21 | Inpatient (IN) | payer OTHER, MEDICAID ==
[~2023-08-05] VITALS: Ht 152.4 cm; Wt 47.7 kg
[2023-08-05] VITALS (13 sets, daily range): BP systolic 114–146; BP diastolic 51–82; PULSE 67–87; RESP 16–20; TEMP 95.6–98.4; O2SAT 95–99
[~2023-08-05 00:21] MED LIST changes: -DIT5 PO; -MAA30 PO; +MERO1PDS7 IV; +METF-713 PO; +OXYB5TAB44 PO; -SODI1TAB1 PO; -[UNRECOGNIZED DRUG - CODE] PO
[2023-08-05] MEDS ORDERED: ONDANSETRON 4 MG/2 ML VIAL IVP ONE (01:35)
[2023-08-05 02:20] LABS: BASOPHILS % (AUTO) 0.2 % (0.0-2.0); EOSINOPHILS % (AUTO) 0.1 % (0.0-4.0); HEMATOCRIT 38.4 % (36-48); LYMPHOCYTES # (AUTO) 1.2 K/uL (2.5-16.5); MEAN CORPUSCULAR HEMOGLOBIN 30 pg (27-31); MEAN CORPUSCULAR HGB CONC 34 g/dL (33-37); MEAN CORPUSCULAR VOLUME 89.8 fL (80-94); MONOCYTES # (AUTO) 0.3 K/uL (0.8-1.0); MONOCYTES % (AUTO) 2.2 % (1.7-9.3); NEUTROPHILS # (AUTO) 12.1 K/uL (1.8-7.7); NEUTROPHILS % (AUTO) 88.5 % (42.2-75.2); PLATELET COUNT (AUTO) 308 K/uL (140-450); RED BLOOD CELL COUNT(AUTO) 4.28 MIL/uL (4.20-5.40); RED CELL DISTRIBUTION WIDTH 12.8 % (11.6-13.7); WHITE BLOOD COUNT (AUTO) 13.7 K/uL (4.8-10.8)
[2023-08-05 02:30] LABS: APPEARANCE,URINE SL CLOUDY (CLEAR); BILIRUBIN,URINE NEGATIVE (NEGATIVE); BLOOD, URINE NEGATIVE (NEGATIVE); COLOR,URINE YELLOW (YELLOW); LEUKOCYTE ESTERASE ,URINE 3+ (NEGATIVE); NITRITE, URINE POSITIVE (NEGATIVE); PH,URINE 7.5 (5.0-9.0); PROTEIN,URINE TRACE (NEGATIVE); UGLUCOSE NEGATIVE (NEGATIVE)
[2023-08-05 02:34] LABS: INR 0.97 (0.8-1.2); PARTIAL THROMBOPLASTIN TIME 25.6 secs (22-35.6); PROTHROMBIN TIME 10.2 secs (10.8-13.4)
[2023-08-05 02:37] LABS: BACTERIA,URINE >30 (MANY) /HPF (None Seen); MUCUS,URINE 1+ /LPF (None Seen); RBC,URINE 0-5 /HPF (0-5); SQUAMOUS EPITHELIAL CELL,UR 0-3 (FEW) /LPF (0-3 (FEW)); WBC,URINE 16-25 (MOD) /HPF (0-5)
[2023-08-05 02:47] LABS: LACTIC ACID 3.9 mmol/L (0.4-2.0)
[2023-08-05] MEDS ORDERED: cefTRIAXone 1,000 MG VIAL ONE (02:48)
[2023-08-05 02:49] LABS: ALANINE AMINOTRANSFERASE 21 U/L (12-78); ALBUMIN 3.4 g/dL (3.4-5.0); ALKALINE PHOSPHATASE 115 U/L (50-136); ANION GAP 14.4 (8-16); ASPARTATE AMINOTRANSFERASE 16 U/L (15-37); CALCIUM 9.7 mg/dL (8.5-10.1); CARBON DIOXIDE 25.2 mmol/L (21-32); CHLORIDE 97 mmol/L (98-107); CREATINE KINASE, TOTAL 26 U/L (26-192); CREATININE 1.2 mg/dL (0.6-1.3); FREE T4 (FREE THYROXINE) 1.13 ng/dL (0.76-1.46); GLUCOSE 181 mg/dL (74-106); LIPASE 69 U/L (16-77); POTASSIUM 4.6 mmol/L (3.5-5.1); SODIUM SERUM 132 mmol/L (136-145); THYROID STIMULATING HORMONE 4.41 uIU/mL (0.34-3.74); TOTAL BILIRUBIN 0.2 mg/dL (0.0-1.0); TOTAL PROTEIN, SERUM 7.2 g/dL (6.4-8.2); UREA NITROGEN, BLOOD 26 mg/dL (7-18)
[2023-08-05] MEDS ORDERED: NACL 0.9% 1,000 ML IV ONE ×2 (03:10)
[2023-08-05] MEDS ORDERED: MEMA10TA PO (04:44)
[2023-08-05] MEDS ORDERED: ASCO500T95 PO (04:44)
[2023-08-05] MEDS ORDERED: POTASSIUM CHLORIDE 10 MEQ TABER PO PRN (05:00)
[2023-08-05] MEDS ORDERED: DOCUSATE SODIUM 100 MG GELCAP PO PRN (05:00)
[2023-08-05] MEDS ORDERED: HYDROcodone/APAP 7.5/325 MG 1 TAB PO PRN (05:00)
[2023-08-05] MEDS ORDERED: ACETAMINOPHEN 325 MG TAB PO PRN (05:00)
[2023-08-05] MEDS ORDERED: guaiFENesin DM 200/20 MG-10 ML 10 ML UDC PO PRN (05:00)
[2023-08-05] MEDS ORDERED: NACL 0.9% 1,000 ML IV SCH (05:00)
[2023-08-05] MEDS ORDERED: ONDANSETRON 4 MG/2 ML VIAL IM/IVP PRN (05:00)
[2023-08-05] MEDS ORDERED: INSULIN LISPRO SLIDING SCALE 100 UNITS/ML VIAL SUBQ PRN (08:45)
[2023-08-05] MEDS ORDERED: DEXTROSE 50% 50 ML SYR IVP PRN (08:45)
[2023-08-05] MEDS: PANTOPRAZOLE 40 MG TABEC PO SCH (08:53)
[2023-08-05] MEDS ORDERED: TERBUTALINE 2.5 MG TAB PO ONE (09:00)
[2023-08-05] MEDS: NACL 0.9% 1,000 ML IV SCH ×2 (10:20→20:46)
[2023-08-05] MEDS: DIVALPROEX 250 MG TABEC PO SCH ×2 (10:21→20:49)
[2023-08-05] MEDS: TERBUTALINE 2.5 MG TAB PO SCH ×2 (10:22→20:47)
[2023-08-05] MEDS: OXYBUTYNIN 5 MG TAB PO SCH ×2 (10:22→20:48)
[2023-08-05] MEDS: MEMANTINE 10 MG TAB PO SCH (10:26)
[2023-08-05] MEDS: OLANZapine 2.5 MG TAB PO SCH ×2 (10:27→20:48)
[2023-08-05] MEDS: METOPROLOL 25 MG TAB PO SCH ×2 (10:27→20:48)
[2023-08-05] MEDS: CEFEPIME 1,000 MG in DEXTROSE 5% 50 ML IV SCH (10:39)
[2023-08-05] MEDS: BLOOD GLUCOSE MONITORING 1 DEV DEV FS SCH ×3 (11:30→21:00)
[2023-08-05 15:40] LABS: LACTIC ACID 2.9 mmol/L (0.4-2.0)
[2023-08-05] MEDS ORDERED: amLODIPine 5 MG TAB PO SCH (16:15)
[2023-08-05] MEDS ORDERED: ZOLPIDEM 5 MG TAB PO PRN (21:00)
[2023-08-06] VITALS (14 sets, daily range): BP systolic 107–145; BP diastolic 57–84; PULSE 69–89; RESP 16–24; TEMP 96–98.3; O2SAT 94–99
[2023-08-06 05:20] LABS: BASOPHILS % (AUTO) 0.1 % (0.0-2.0); EOSINOPHILS # (AUTO) 0.1 K/uL (0-0.4); EOSINOPHILS % (AUTO) 0.3 % (0.0-4.0); HEMATOCRIT 38.1 % (36-48); HEMOGLOBIN 12.6 g/dL (12.0-16.0); LYMPHOCYTES # (AUTO) 1.6 K/uL (2.5-16.5); LYMPHOCYTES % (AUTO) 10.1 % (20.5-51.1); MEAN CORPUSCULAR HEMOGLOBIN 30 pg (27-31); MEAN CORPUSCULAR HGB CONC 33 g/dL (33-37); MEAN CORPUSCULAR VOLUME 90.4 fL (80-94); MONOCYTES # (AUTO) 0.9 K/uL (0.8-1.0); MONOCYTES % (AUTO) 5.9 % (1.7-9.3); NEUTROPHILS # (AUTO) 13.1 K/uL (1.8-7.7); NEUTROPHILS % (AUTO) 83.6 % (42.2-75.2); PLATELET COUNT (AUTO) 267 K/uL (140-450); RED BLOOD CELL COUNT(AUTO) 4.22 MIL/uL (4.20-5.40); RED CELL DISTRIBUTION WIDTH 13.4 % (11.6-13.7); WHITE BLOOD COUNT (AUTO) 15.6 K/uL (4.8-10.8)
[2023-08-06 06:32] LABS: ANION GAP 15.1 (8-16); CALCIUM 8.9 mg/dL (8.5-10.1); CHLORIDE 103 mmol/L (98-107); CREATININE 0.9 mg/dL (0.6-1.3); GLUCOSE 100 mg/dL (74-106); POTASSIUM 4.1 mmol/L (3.5-5.1); SODIUM SERUM 138 mmol/L (136-145); UREA NITROGEN, BLOOD 15 mg/dL (7-18)
[2023-08-06] MEDS: LEVOTHYROXINE 0.075 MG TAB PO SCH (06:37)
[2023-08-06] MEDS: BLOOD GLUCOSE MONITORING 1 DEV DEV FS SCH ×4 (06:41→21:43)
[2023-08-06] MEDS: NACL 0.9% 1,000 ML IV SCH (06:41)
[2023-08-06] MEDS: PANTOPRAZOLE 40 MG TABEC PO SCH (08:48)
[2023-08-06] MEDS: OLANZapine 2.5 MG TAB PO SCH ×2 (08:48→21:30)
[2023-08-06] MEDS: DIVALPROEX 250 MG TABEC PO SCH ×2 (08:48→21:29)
[2023-08-06] MEDS: CEFEPIME 1,000 MG in DEXTROSE 5% 50 ML IV SCH (08:48)
[2023-08-06] MEDS: METOPROLOL 25 MG TAB PO SCH ×2 (08:48→21:30)
[2023-08-06] MEDS: TERBUTALINE 2.5 MG TAB PO SCH ×2 (08:48→21:30)
[2023-08-06] MEDS: OXYBUTYNIN 5 MG TAB PO SCH ×2 (08:48→21:29)
[2023-08-06] MEDS: MEMANTINE 10 MG TAB PO SCH (08:48)
[2023-08-06] MEDS ORDERED: CRUSHER, PILL MC ONE (21:36)
[2023-08-07] MEDS: LEVOTHYROXINE 0.075 MG TAB PO SCH (06:30)
[2023-08-07] MEDS: BLOOD GLUCOSE MONITORING 1 DEV DEV FS SCH ×4 (06:33→20:47)
[2023-08-07 07:16] LABS: BASOPHILS # (AUTO) 0.1 K/uL (0.00-0.22); BASOPHILS % (AUTO) 0.4 % (0.0-2.0); EOSINOPHILS # (AUTO) 0.4 K/uL (0-0.4); EOSINOPHILS % (AUTO) 3.2 % (0.0-4.0); HEMATOCRIT 35.5 % (36-48); HEMOGLOBIN 11.8 g/dL (12.0-16.0); LYMPHOCYTES # (AUTO) 2.4 K/uL (2.5-16.5); LYMPHOCYTES % (AUTO) 18.2 % (20.5-51.1); MEAN CORPUSCULAR HEMOGLOBIN 30 pg (27-31); MEAN CORPUSCULAR HGB CONC 33 g/dL (33-37); MEAN CORPUSCULAR VOLUME 89.7 fL (80-94); MONOCYTES # (AUTO) 1.1 K/uL (0.8-1.0); MONOCYTES % (AUTO) 8.1 % (1.7-9.3); NEUTROPHILS # (AUTO) 9.1 K/uL (1.8-7.7); NEUTROPHILS % (AUTO) 70.1 % (42.2-75.2); PLATELET COUNT (AUTO) 271 K/uL (140-450); RED BLOOD CELL COUNT(AUTO) 3.96 MIL/uL (4.20-5.40); RED CELL DISTRIBUTION WIDTH 13.3 % (11.6-13.7)
[2023-08-07 07:20] LABS: ANION GAP 10.3 (8-16); CALCIUM 8.8 mg/dL (8.5-10.1); CARBON DIOXIDE 25.7 mmol/L (21-32); CHLORIDE 106 mmol/L (98-107); GLUCOSE 75 mg/dL (74-106); SODIUM SERUM 138 mmol/L (136-145); UREA NITROGEN, BLOOD 13 mg/dL (7-18)
[2023-08-07 08:00] VITALS: BP 125/63; PULSE 82; RESP 18; TEMP 98.1; O2SAT 96
[2023-08-07] MEDS: CEFEPIME 1,000 MG in DEXTROSE 5% 50 ML IV SCH (09:00)
[2023-08-07] MEDS: TERBUTALINE 2.5 MG TAB PO SCH ×2 (09:00→20:35)
[2023-08-07] MEDS: OLANZapine 2.5 MG TAB PO SCH ×2 (10:04→20:36)
[2023-08-07] MEDS: DIVALPROEX 250 MG TABEC PO SCH ×2 (10:04→20:35)
[2023-08-07] MEDS: PANTOPRAZOLE 40 MG TABEC PO SCH (10:05)
[2023-08-07] MEDS: MEMANTINE 10 MG TAB PO SCH (10:05)
[2023-08-07] MEDS: METOPROLOL 25 MG TAB PO SCH ×2 (10:05→20:35)
[2023-08-07] MEDS: OXYBUTYNIN 5 MG TAB PO SCH ×2 (10:05→20:35)
[2023-08-07 16:00] VITALS: BP 117/77; PULSE 85; RESP 18; TEMP 97.4; O2SAT 95
[2023-08-07 20:00] VITALS: PULSE 90; RESP 18; TEMP 97.9; O2SAT 98
[2023-08-08] VITALS: BP 142/79; PULSE 90; RESP 18; TEMP 97.9; O2SAT 98
[2023-08-08] MEDS: LEVOTHYROXINE 0.075 MG TAB PO SCH (05:37)
[2023-08-08] MEDS: BLOOD GLUCOSE MONITORING 1 DEV DEV FS SCH ×4 (06:33→21:00)
[2023-08-08 06:55] LABS: BASOPHILS % (AUTO) 0.4 % (0.0-2.0); EOSINOPHILS # (AUTO) 0.7 K/uL (0-0.4); EOSINOPHILS % (AUTO) 5.5 % (0.0-4.0); HEMATOCRIT 37.2 % (36-48); HEMOGLOBIN 12.4 g/dL (12.0-16.0); LYMPHOCYTES # (AUTO) 2.3 K/uL (2.5-16.5); LYMPHOCYTES % (AUTO) 18.4 % (20.5-51.1); MEAN CORPUSCULAR HEMOGLOBIN 30 pg (27-31); MEAN CORPUSCULAR HGB CONC 33 g/dL (33-37); MEAN CORPUSCULAR VOLUME 89.5 fL (80-94); MONOCYTES % (AUTO) 8.1 % (1.7-9.3); NEUTROPHILS # (AUTO) 8.3 K/uL (1.8-7.7); NEUTROPHILS % (AUTO) 67.6 % (42.2-75.2); PLATELET COUNT (AUTO) 298 K/uL (140-450); RED BLOOD CELL COUNT(AUTO) 4.16 MIL/uL (4.20-5.40); RED CELL DISTRIBUTION WIDTH 13.1 % (11.6-13.7); WHITE BLOOD COUNT (AUTO) 12.3 K/uL (4.8-10.8)
[2023-08-08 08:00] VITALS: BP 148/78; PULSE 75; RESP 18; TEMP 97.1; O2SAT 93; O2SAT 98
[2023-08-08] MEDS ORDERED: CEPH-588 PO (09:38)
[2023-08-08] MEDS: TERBUTALINE 2.5 MG TAB PO SCH ×2 (09:40→21:54)
[2023-08-08] MEDS: DIVALPROEX 250 MG TABEC PO SCH ×2 (09:41→21:52)
[2023-08-08] MEDS: OXYBUTYNIN 5 MG TAB PO SCH ×2 (09:41→21:53)
[2023-08-08] MEDS: METOPROLOL 25 MG TAB PO SCH ×2 (09:42→21:52)
[2023-08-08] MEDS: OLANZapine 2.5 MG TAB PO SCH ×2 (09:43→21:53)
[2023-08-08] MEDS: PANTOPRAZOLE 40 MG TABEC PO SCH (09:43)
[2023-08-08] MEDS: MEMANTINE 10 MG TAB PO SCH (09:43)
[2023-08-08] MEDS: CEFEPIME 1,000 MG in DEXTROSE 5% 50 ML IV SCH (10:35)
[2023-08-08 16:00] VITALS: BP 127/67; PULSE 80; RESP 18; TEMP 98.2
[2023-08-08 20:00] VITALS: TEMP 97.4
[2023-08-09] VITALS: BP 136/51; PULSE 69; RESP 16; TEMP 99.2
[2023-08-09 03:54] VITALS: PULSE 89; RESP 18; O2SAT 98
[2023-08-09 04:00] VITALS: BP 125/64; PULSE 80; RESP 17; TEMP 97.5
[2023-08-09 05:21] LABS: BASOPHILS % (AUTO) 0.4 % (0.0-2.0); EOSINOPHILS # (AUTO) 0.9 K/uL (0-0.4); EOSINOPHILS % (AUTO) 8.3 % (0.0-4.0); HEMATOCRIT 35.1 % (36-48); HEMOGLOBIN 11.8 g/dL (12.0-16.0); LYMPHOCYTES # (AUTO) 2.3 K/uL (2.5-16.5); LYMPHOCYTES % (AUTO) 22.2 % (20.5-51.1); MEAN CORPUSCULAR HEMOGLOBIN 30 pg (27-31); MEAN CORPUSCULAR HGB CONC 34 g/dL (33-37); MEAN CORPUSCULAR VOLUME 90.2 fL (80-94); MONOCYTES # (AUTO) 0.8 K/uL (0.8-1.0); MONOCYTES % (AUTO) 7.4 % (1.7-9.3); NEUTROPHILS # (AUTO) 6.5 K/uL (1.8-7.7); NEUTROPHILS % (AUTO) 61.7 % (42.2-75.2); PLATELET COUNT (AUTO) 298 K/uL (140-450); RED BLOOD CELL COUNT(AUTO) 3.89 MIL/uL (4.20-5.40); WHITE BLOOD COUNT (AUTO) 10.5 K/uL (4.8-10.8)
[2023-08-09] MEDS: LEVOTHYROXINE 0.075 MG TAB PO SCH (06:30)
[2023-08-09] MEDS: BLOOD GLUCOSE MONITORING 1 DEV DEV FS SCH ×3 (06:33→17:45)
[2023-08-09 08:00] VITALS: BP 138/82; PULSE 92; RESP 20; TEMP 97.8
[2023-08-09] MEDS: DIVALPROEX 250 MG TABEC PO SCH (09:58)
[2023-08-09] MEDS: PANTOPRAZOLE 40 MG TABEC PO SCH (09:58)
[2023-08-09] MEDS: OLANZapine 2.5 MG TAB PO SCH (09:58)
[2023-08-09] MEDS: MEMANTINE 10 MG TAB PO SCH (09:58)
[2023-08-09] MEDS: OXYBUTYNIN 5 MG TAB PO SCH (09:59)
[2023-08-09] MEDS: METOPROLOL 25 MG TAB PO SCH (09:59)
[2023-08-09] MEDS: TERBUTALINE 2.5 MG TAB PO SCH (10:01)
[2023-08-09] MEDS: CEFEPIME 1,000 MG in DEXTROSE 5% 50 ML IV SCH (10:19)
[2023-08-09 15:08] VITALS: O2SAT 94
[2023-08-09 16:00] VITALS: BP 126/88; PULSE 76; RESP 18; TEMP 97.6
== END 2023-08-09 19:10 | DRG 871 ==
LOC: MED 00:21 → MTU 05:02 → MIC 07:44 → MTU 08-06 18:30
PROVIDERS: ADMIT Student in an Organized Health Care Education/Training Program; ATTEND Student in an Organized Health Care Education/Training Program
DX: A41.9 Sepsis, unspecified organism (principal); G93.41 Metabolic encephalopathy; N39.0 Urinary tract infection, site not specified; J44.9 Chronic obstructive pulmonary disease, unspecified; F03.90 Unspecified dementia, unspecified severity, without behavioral disturbance, psychotic disturbance, mood disturbance, and anxiety; F20.9 Schizophrenia, unspecified; K21.9 Gastro-esophageal reflux disease without esophagitis; F31.9 Bipolar disorder, unspecified; I12.9 Hypertensive chronic kidney disease with stage 1 through stage 4 chronic kidney disease, or unspecified chronic kidney disease; E11.22 Type 2 diabetes mellitus with diabetic chronic kidney disease; N18.9 Chronic kidney disease, unspecified
CPT/HCPCS: 36415; 71045; 80048; 80053; 81001; 82550; 82948; 83605; 83690; 84439; 84443; 84484; 85025; 85610; 85730; 87040; 87081; 87086; 96361; 96365; 96375; 97112; 97116; 97163-GP; 97530; 99291; J0692; J0696; J1644; J1815; J2405; J7060